=== PATIENT | male | born 1940 | race Caucasian/White ===

== ENCOUNTER 2019-03-31 06:35 | Day surgery (SDC) | payer MEDICARE ==
[2019-03-31 06:54] LABS: BASOPHILS 0.3 % (0-2); EOSINOPHILS 5.7 % (0-7); HEMATOCRIT 36.2 % (42.0-54.0); LYMPHOCYTES 31.3 % (15-50); MCH 32.3 pg (26.0-34.0); MCHC 33.1 g/dL (31.0-37.0); MCV 97.3 fL (80.0-100.0); MONOCYTES 7.8 % (2-11); NEUTROPHILS 54.9 % (40-80); PLATELET COUNT 139 10x3/uL (130-400); RBC 3.72 10x6/uL (4.20-6.10); RDW 13.5 % (11.5-14.5)
[2019-03-31 07:04] LABS: ANION GAP 13.7 mmol/L (8-16); CARBON DIOXIDE 24.6 mmol/L (21.0-32.0); CREATININE - SERUM 1.4 mg/dL (0.6-1.3); POTASSIUM - SERUM 4.3 mmol/L (3.5-5.1)
[2019-03-31 08:05] VITALS: BP 135/69; BMI 34.4
[2019-03-31] MEDS ORDERED: HYDROCODON-ACE1 EA10 PO (09:39)
--- NOTE | 2019-04-21 10:09 | OP ---
PATIENT NAME: BRIGHT JACOBS MEDICAL RECORD: [id number] :38 LOCATION:[facility] ADMISSION DATE: SURGEON: SANTIAGO GONZALES MD DATE OF OPERATION: 03/31/2019 PREOPERATIVE DIAGNOSES: 1. Sebaceous cyst of the back. 2. Gout. POSTOPERATIVE DIAGNOSES: 1. Sebaceous cyst of the back. 2. Gout. PROCEDURE: Excision of 3 cm back sebaceous cyst. SURGEON: Santiago Gonzales MD REPORT OF PROCEDURE: The patient was placed in the right lateral decubitus position and the back was prepped and draped in sterile fashion. In the left lower back, there was noted to be a sebaceous cyst with surrounding inflammatory changes. An ovoid incision was made around the opening in the skin and electrocautery was used to dissect through the subcutaneous tissues and around the cyst. There was noted to be gross purulence inside the cystic pocket. The cyst was completely excised down to normal appearing fatty tissue. This did not penetrate the patient's fascia. We then irrigated out the wound thoroughly with normal saline. We measured out the opening and it was approximately 3 cm in greatest diameter. At this point, we inspected the wound bed and any bleeding that was found was treated with electrocautery. The wound was then packed with iodoform soaked packing strips and dressed with dry 4 x 4s. COMPLICATIONS: None. CONDITION: Stable. ANESTHESIA: General endotracheal and local. BLOOD LOSS: 30 mL. TRANSINT:[id number] Voice Confirmation ID: [id number] DOCUMENT ID: [id number] SANTIAGO GONZALES MD at 1009 CC: ANTOINE SOTO [id number] DICTATION DATE: 03/31/19 0945 SLOT TECHNICIAN: 03/31/19 1152 [facility] 03/31/19 [place] [id number]
== END 2019-03-31 11:30 | disposition home or self-care (01) ==
LOC: D.OPS 06:35 → EDBD 09:00 → D.OPS 11:30
PROVIDERS: Anesthesiology; ATTEND Surgery
DX: L72.3 Sebaceous cyst (principal); M10.9 Gout, unspecified; Z01.812 Encounter for preprocedural laboratory examination